=== PATIENT | female | born 1960 | race Two or more races ===

== ENCOUNTER 2017-10-20 10:05 | Emergency (ER) | payer MEDICARE, OTHER ==
[2017-10-20] MEDS ORDERED: NS 0.9% 1000 ML* 2,000 ML IV ONE (10:31)
[2017-10-20] MEDS ORDERED: Famotidine IV* 10 MG/ML 2 ML (20 mg) IV SLOW PU ONE (10:32)
[2017-10-20 11:00] LABS: Hematocrit 46 % (35-47); Hemoglobin 15.2 g/dl (12.0-16.0); Mean Corpuscular HGB Conc 33 g/dl (31-36); Mean Corpuscular Hemoglobin 27 pg (27-31); Mean Corpuscular Volume 83 fL (80-97); Mean Platelet Volume 9 um3 (7.4-10.4); Red Blood Count 5.54 10^6/ul (4.0-5.4); Red Cell Distribution Width 15 % (10.5-15)
[2017-10-20 11:18] LABS: Potassium 3.6 mmol/L (3.5-5.0)
[2017-10-20 11:19] LABS: Albumin 4.5 g/dL (3.2-5.2); BUN/Creatinine Ratio 33.8 (8-20); C Reactive Protein 9.42 mg/L (< 5.00); Calcium 10.7 mg/dL (8.6-10.3); EGFR African American 109.1 (>60); EGFR Non-African American 84.8 (>60); Globulin 4.1 g/dL (2-4); Total Bilirubin 0.7 mg/dL (0.2-1.0); Total Protein 8.6 g/dL (6.4-8.9)
[2017-10-20] MEDS ORDERED: Lidocaine 2% VISCOUS* 15 ML UDC PO ONE (11:42)
[2017-10-20] MEDS ORDERED: Al Hydrox/Mg Hydrox/Simet LIQ* 30 ML UDC PO ONE (11:42)
[2017-10-20] MEDS ORDERED: Dicyclomine CAP* 10 MG PO ONE (11:42)
--- NOTE | 2017-10-20 12:31 | RAD ---
INDICATION: Abdominal pain COMPARISON: None TECHNIQUE: Erect and supine views of the abdomen are submitted. FINDINGS: Bones: There are no acute bony findings. Soft tissues: The soft tissues appear normal. The psoas margins are sharp. Bowel gas pattern: Normal Calcifications: There are no abnormal calcifications. Other: None IMPRESSION: NO ACUTE DIAGNOSTIC FINDINGS.
[2017-10-20 15:13] VITALS: BP 135/81
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
== END 2017-10-20 15:12 | disposition home or self-care (01) ==
LOC: ED 10:05
DX: R11.2 Nausea with vomiting, unspecified (principal); R19.7 Diarrhea, unspecified; F17.210 Nicotine dependence, cigarettes, uncomplicated; Z88.0 Allergy status to penicillin; J45.909 Unspecified asthma, uncomplicated
CPT/HCPCS: 36415; 74020; 80053; 83690; 85025; 86140; 93005; 96360; 96374; 99284; A9270-GY

== ENCOUNTER 2017-11-20 10:27 | Emergency (ER) | payer MEDICARE, MEDICAID ==
[2017-11-20] MEDS ORDERED: LORazepam INJ* 2 MG/ML 1 ML VIAL IM ONE ×2 (11:03→12:33)
[2017-11-20 13:44] LABS: ABS Basophils 0.1 10^3/ul (0-0.2); ABS Eosinophils 0.1 10^3/ul (0-0.6); ABS Lymphocytes 1.8 10^3/ul (1.0-4.8); ABS Monocytes 0.7 10^3/ul (0-0.8); ABS Neutrophils 8.9 10^3/ul (1.5-7.7); ABS Nucleated RBC 0 10^3/ul; Eosinophil % 1.1 % (0-6); Hematocrit 44 % (35-47); Hemoglobin 14.6 g/dl (12.0-16.0); Lymphocyte % 15.5 % (25-47); Mean Corpuscular HGB Conc 33 g/dl (31-36); Mean Corpuscular Hemoglobin 28 pg (27-31); Mean Corpuscular Volume 84 fL (80-97); Mean Platelet Volume 9 um3 (7.4-10.4); Nucleated Red Blood Cells % 0; Platelet Count 276 10^3/ul (150-450); Red Blood Count 5.21 10^6/ul (4.0-5.4); Red Cell Distribution Width 15 % (10.5-15); White Blood Count 11.6 10^3/ul (3.5-10.8)
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
[2017-11-20 15:16] VITALS: BP 114/67
== END 2017-11-20 15:31 | disposition home or self-care (01) ==
LOC: ED 10:27
DX: F41.9 Anxiety disorder, unspecified (principal); F17.210 Nicotine dependence, cigarettes, uncomplicated; Z88.3 Allergy status to other anti-infective agents; Z88.0 Allergy status to penicillin; Z88.2 Allergy status to sulfonamides
CPT/HCPCS: 36415; 80053; 80320; 80329; 84443; 85025; 96372; 99284; G0480; J2060